=== PATIENT | male | born 1955 | race Caucasian/White ===

== ENCOUNTER 2019-06-25 12:26 | Outpatient (CLI) | payer OTHER | END 2019-06-25 23:59 | disposition home or self-care (01) | LOC: CARD 12:26 | PROVIDERS: ATTEND Nurse Practitioner Acute Care | DX: G40.89 Other seizures (principal) | CPT/HCPCS: 95819 ==

== ENCOUNTER 2019-07-13 10:06 | Emergency (ER) | payer OTHER ==
[~2019-07-13] VITALS: Ht 172.7 cm; Wt 117.0 kg
--- NOTE | 2019-07-13 10:11 | NUR ---
BIB by EMS. due to witness seizures lasting 30 seconds today while pt was at work and last night. pt denies LOC. pt ambulated from EMS [facility] to hospital [facility] with a steady gait. Changed into a hospital gown and connected to monitors. Call light within reach, bed rails up for pt safety. Encouraged to call for assistance and not get up on his own.
--- NOTE | 2019-07-13 10:18 | NUR ---
Provider at bedside.
--- NOTE | 2019-07-13 11:01 | NUR ---
LAB AT BEDSIDE
[2019-07-13 11:27] LABS: ALBUMIN 3.5 g/dL (3.4-5.0); ANION GAP 6 mmol/L (5-15); CALCIUM 9.1 mg/dL (8.5-10.1); CHLORIDE 108 mmol/L (98-107); CREATININE 1.19 mg/dL (0.7-1.3)
--- NOTE | 2019-07-13 11:51 | NUR ---
[facility] PAG[facility]
[2019-07-13] MEDS ORDERED: SODIUM CHLORIDE FLUSH 10ML SYR IVF ONE (12:00)
[2019-07-13] MEDS ORDERED: LEVETIRACETAM 1,500 MG in SODIUM CHLORIDE 0.9% 100 ML IV ONE (12:00)
--- NOTE | 2019-07-13 12:00 | NUR ---
Pt ambulated to restroom without difficulty.
[2019-07-13] MEDS ORDERED: PLEASE ENTER ALLERGIES MC SCH (12:30)
[2019-07-13 14:31] VITALS: BP 123/58
--- NOTE | 2019-07-13 14:35 | NUR ---
Patient/Caregiver given discharge instructions and they have confirmed that they understand the instructions. Patient ambulatory with steady gait. Referral given to pt. pt verbalized understanding to follow up as directed
== END 2019-07-13 14:36 | disposition home or self-care (01) ==
LOC: ED 11:21
DX: G40.009 Localization-related (focal) (partial) idiopathic epilepsy and epileptic syndromes with seizures of localized onset, not intractable, without status epilepticus (principal)
CPT/HCPCS: 36415; 80048; 82040; 93005; 96365; 99284; J1953